=== PATIENT | female | born 1995 | race Caucasian/White ===

== ENCOUNTER 2019-07-31 11:35 | Outpatient (CLI) | payer OTHER ==
[2019-07-31 19:11] LABS: FOLLICLE STIMULATING HORMONE 8.06 mIU/mL
[2019-07-31 19:12] LABS: LUTEINIZING HORMONE 9.63 mIU/mL
== END 2019-07-31 11:36 | disposition home or self-care (01) ==
LOC: LAB.S 11:35
PROVIDERS: ATTEND Naturopath
DX: E28.1 Androgen excess (principal)
CPT/HCPCS: 36415; 81599; 82627; 83001; 83002; 86141

== ENCOUNTER 2020-03-02 14:05 | Outpatient (CLI) | payer OTHER ==
[2020-03-02 19:00] LABS: FOLLICLE STIMULATING HORMONE 4.55 mIU/mL
[2020-03-02 19:01] LABS: LUTEINIZING HORMONE 1.77 mIU/mL
== END 2020-03-02 23:59 | disposition home or self-care (01) ==
LOC: LAB.WCP 14:05
PROVIDERS: ATTEND Naturopath
DX: E28.1 Androgen excess (principal)
CPT/HCPCS: 36415; 81599; 82627; 83001; 83002; 84402; 84403

== ENCOUNTER 2020-06-23 12:11 | Outpatient (CLI) | payer OTHER ==
[2020-06-23 16:17] LABS: FOLLICLE STIMULATING HORMONE 5.85 mIU/mL
[2020-06-23 16:18] LABS: LUTEINIZING HORMONE 12.59 mIU/mL
== END 2020-06-23 12:12 | disposition home or self-care (01) ==
LOC: LAB.S 12:11
PROVIDERS: ATTEND Naturopath
DX: E28.1 Androgen excess (principal)
CPT/HCPCS: 36415; 81599; 82627; 83001; 83002; 84402; 84403

== ENCOUNTER 2020-12-31 10:56 | Outpatient (CLI) | payer OTHER ==
[2021-01-02 12:51] LABS: NIL 0.02 IU/mL; TB1-NIL 0.01 IU/mL; TB2-NIL 0.02 IU/mL
== END 2020-12-31 10:57 | disposition home or self-care (01) ==
LOC: LAB.S 10:56
PROVIDERS: ATTEND Nurse Practitioner Family
DX: Z11.1 Encounter for screening for respiratory tuberculosis (principal)
CPT/HCPCS: 36415; 86480

== ENCOUNTER 2021-03-29 11:59 | Outpatient (CLI) | payer OTHER ==
[2021-03-29 15:14] LABS: BASOPHILS % (AUTO) 0.4 %; EOSINOPHILS % (AUTO) 0.4 %; HCT - HEMATOCRIT 42.9 % (37.0-47.0); HGB - HEMOGLOBIN 13.9 g/dL (12.0-16.0); LYMPHOCYTES # (AUTO) 1.7 10^3/uL (1.5-3.5); LYMPHOCYTES % (AUTO) 21.8 %; MEAN CORPUSCULAR HEMOGLOBIN 30.3 pg (27.0-31.0); MEAN CORPUSCULAR HGB CONC 32.4 g/dL (32.0-36.0); MEAN CORPUSCULAR VOLUME 93.5 fL (81.0-99.0); MEAN PLATELET VOLUME 9.8 fL (7.9-10.8); MONOCYTES # (AUTO) 0.6 10^3/uL (0.0-1.0); MONOCYTES % (AUTO) 8.3 %; NEUTROPHILS # (AUTO) 5.3 10^3/uL (1.5-6.6); NEUTROPHILS % (AUTO) 68.8 %; PLT - PLATELET COUNT 286 10^3/uL (130-450); RED BLOOD COUNT 4.59 10^6/uL (4.20-5.40); WHITE BLOOD COUNT 7.7 x10^3/uL (4.8-10.8)
[2021-03-29 15:59] LABS: THYROID STIMULATING HORMONE 0.62 uIU/mL (0.34-5.60)
[2021-03-29 16:00] LABS: FREE T3 2.9 pg/mL (2.5-3.9)
[2021-03-29 16:01] LABS: FREE T4 (FREE THYROXINE) 0.75 ng/dL (0.58-1.64)
[2021-03-29 16:05] LABS: FERRITIN 60.1 ng/mL (11.0-306.8)
[2021-03-29 16:25] LABS: FOLLICLE STIMULATING HORMONE 2.12 mIU/mL
[2021-03-29 16:26] LABS: LUTEINIZING HORMONE 4.77 mIU/mL
== END 2021-03-29 12:00 | disposition home or self-care (01) ==
LOC: LAB.S 11:59
PROVIDERS: ATTEND Naturopath
DX: E28.1 Androgen excess (principal)
CPT/HCPCS: 36415; 81599; 82627; 82728; 83001; 83002; 84402; 84403; 84439; 84443; 84481; 85025

== ENCOUNTER 2021-04-21 11:30 | Outpatient (CLI) | payer MEDICAID | END 2021-04-21 23:59 | disposition home or self-care (01) | LOC: COV 11:30 | PROVIDERS: ATTEND Family Medicine | DX: R06.02 Shortness of breath (principal); R53.83 Other fatigue; R09.81 Nasal congestion; J34.89 Other specified disorders of nose and nasal sinuses; Z20.822 Contact with and (suspected) exposure to COVID-19 ==

== ENCOUNTER 2023-07-04 10:04 | Outpatient (CLI) | payer MEDICAID ==
[2023-07-04 15:31] LABS: THYROID STIMULATING HORMONE 0.02 uIU/mL (0.34-5.60)
== END 2023-07-04 10:05 | disposition home or self-care (01) ==
LOC: LAB.S 10:04
PROVIDERS: ATTEND Nurse Practitioner Acute Care
DX: E03.9 Hypothyroidism, unspecified (principal)
CPT/HCPCS: 36415; 84439; 84443